=== PATIENT | male | born 2000 | race Caucasian/White ===

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

== ENCOUNTER 2019-01-21 05:45 | Emergency (ER) | payer OTHER ==
[~2019-01-21] VITALS: Ht 182.9 cm; Wt 86.2 kg
[~2019-01-21 05:45] MED LIST changes: +ERYTHROMYCIN E3.5 G2 OPHTHALMIC; +ONDANSETRON HCL4 M2 PO; +PREDNISONE 20 M20 MG PO
[2019-01-21 05:52] VITALS: BP 109/59
[2019-01-21] MEDS ORDERED: ZOFRAN ODT4 MG PO (06:18)
== END 2019-01-21 06:25 | disposition home or self-care (01) ==
LOC: ER 05:45
DX: B34.9 Viral infection, unspecified (principal); F17.210 Nicotine dependence, cigarettes, uncomplicated; F12.10 Cannabis abuse, uncomplicated

== ENCOUNTER 2019-01-23 07:58 | Emergency (ER) | payer OTHER ==
[~2019-01-23] VITALS: Ht 182.9 cm; Wt 79.4 kg
[2019-01-23 08:54] LABS: ABSOLUTE NEUTROPHILS 1.9 thou/uL (1.4-8.2); BASOPHILS 1.1 % (0.0-2.0); HEMATOCRIT 41.8 % (42.0-52.0); HEMOGLOBIN 14.5 gm/dL (14.0-18.0); LYMPHOCYTES 40.6 % (24.0-44.0); MCH 29.9 pg (26.0-34.0); MCHC 34.7 g/dL (28.0-37.0); PLATELET COUNT 179 thou/uL (150-400); POLYS 44.3 % (36.0-66.0); RBC 4.86 mil/uL (4.50-6.00); RDW 12.7 % (10.5-14.5); WBC 4.2 thou/uL (4.0-11.0)
[2019-01-23 09:01] LABS: CALCIUM 9.4 mg/dL (8.5-10.1); CREATININE 0.9 mg/dL (0.7-1.3)
[2019-01-23] MEDS ORDERED: PHENERGAN 25 MG25 M1 PO (09:28)
[2019-01-23 10:32] VITALS: BP 131/74
== END 2019-01-23 09:45 | disposition home or self-care (01) ==
LOC: ER 07:58
PROVIDERS: Student in an Organized Health Care Education/Training Program
DX: R11.2 Nausea with vomiting, unspecified (principal); F17.210 Nicotine dependence, cigarettes, uncomplicated

== ENCOUNTER 2020-05-02 17:16 | Emergency (ER) | payer OTHER ==
[~2020-05-02] VITALS: Ht 182.9 cm; Wt 70.3 kg
[~2020-05-02 17:16] MED LIST changes: +PHENERGAN 25 MG25 M1 PO
[2020-05-02 18:14] LABS: URINE BILIRUBIN NEGATIVE (Negative); URINE BLOOD NEGATIVE (Negative); URINE CLARITY CLEAR; URINE COLOR YELLOW; URINE GLUCOSE-RANDOM* NEGATIVE (Negative); URINE KETONES NEGATIVE (Negative); URINE LEUKOCYTES-REFLEX NEGATIVE (Negative); URINE NITRITE-REFLEX NEGATIVE (Negative); URINE PROTEIN (DIPSTICK) NEGATIVE (Negative)
[2020-05-02 18:24] LABS: AMP/METHAMP Negative (Negative); BARBITURATES Negative (Negative); BENZODIAZEPINES Negative (Negative); COCAINE Negative (Negative); METHADONE Negative (Negative); OPIATES Negative (Negative); PCP Negative (Negative)
[2020-05-02 18:37] VITALS: BP 117/49
== END 2020-05-02 18:37 | disposition home or self-care (01) ==
LOC: ER 17:16
PROVIDERS: Physician Assistant
DX: R19.7 Diarrhea, unspecified (principal); R11.2 Nausea with vomiting, unspecified; R10.31 Right lower quadrant pain; R51 Headache; F17.210 Nicotine dependence, cigarettes, uncomplicated; Z79.899 Other long term (current) drug therapy; Z91.048 Other nonmedicinal substance allergy status

== ENCOUNTER 2020-09-20 12:33 | Emergency (ER) | payer OTHER ==
[~2020-09-20] VITALS: Ht 182.9 cm; Wt 72.6 kg
[2020-09-20 14:05] LABS: ABSOLUTE NEUTROPHILS 2.3 thou/uL (1.4-8.2); BASOPHILS 0.9 % (0.0-2.0); EOSINOPHILS 5.2 % (0.0-3.0); HEMATOCRIT 45.3 % (42.0-52.0); HEMOGLOBIN 15.3 gm/dL (14.0-18.0); LYMPHOCYTES 33.7 % (24.0-44.0); MCH 29.5 pg (26.0-34.0); MCHC 33.8 g/dL (28.0-37.0); MCV 87.3 fL (80.0-100.0); MONOCYTES 8.6 % (1.0-8.0); PLATELET COUNT 231 thou/uL (150-400); POLYS 51.6 % (36.0-66.0); RBC 5.19 mil/uL (4.50-6.00); WBC 4.4 thou/uL (4.0-11.0)
[2020-09-20 14:13] LABS: CALCIUM 9.3 mg/dL (8.5-10.1); POTASSIUM 4.4 mmol/L (3.5-5.1)
[2020-09-20 14:20] LABS: ALBUMIN 3.9 g/dL (3.4-5.0); TOTAL BILIRUBIN 0.3 mg/dL (0.2-1.0); TOTAL PROTEIN 7.7 g/dL (6.4-8.2)
[2020-09-20] MEDS ORDERED: PROMETH-CODEIN 65 ML PO (14:44)
[2020-09-20 15:06] VITALS: BP 111/60
== END 2020-09-20 15:07 | disposition home or self-care (01) ==
LOC: ER 12:33
PROVIDERS: Physician Assistant
DX: J06.9 Acute upper respiratory infection, unspecified (principal); F17.210 Nicotine dependence, cigarettes, uncomplicated; Z91.09 Other allergy status, other than to drugs and biological substances; Z79.1 Long term (current) use of non-steroidal anti-inflammatories (NSAID); Z20.828 Contact with and (suspected) exposure to other viral communicable diseases

== ENCOUNTER 2021-02-21 16:36 | Emergency (ER) | payer OTHER ==
[~2021-02-21] VITALS: Ht 182.9 cm; Wt 68.0 kg
[~2021-02-21 16:36] MED LIST changes: +PROMETH-CODEIN 65 ML PO
[2021-02-21] MEDS ORDERED: NAPROSYN500 MG PO (18:09)
[2021-02-21] MEDS ORDERED: TYLENOL325 M1 PO (18:09)
[2021-02-21] MEDS ORDERED: FLEXERIL PO (18:09)
[2021-02-21 18:40] VITALS: BP 111/63
== END 2021-02-21 18:43 | disposition home or self-care (01) ==
LOC: ER 16:36
DX: S16.1XXA Strain of muscle, fascia and tendon at neck level, initial encounter (principal); S50.02XA Contusion of left elbow, initial encounter; S00.03XA Contusion of scalp, initial encounter; S60.512A Abrasion of left hand, initial encounter; F17.210 Nicotine dependence, cigarettes, uncomplicated; V49.88XA Car occupant (driver) (passenger) injured in other specified transport accidents, initial encounter; Y93.89 Activity, other specified; Y92.413 State road as the place of occurrence of the external cause; Y99.9 Unspecified external cause status